=== PATIENT | female | born 1950 | race Caucasian/White ===

== ENCOUNTER 2017-01-20 18:55 | Emergency (ER) | payer MEDICARE ==
[~2017-01-20] VITALS: Ht 149.9 cm; Wt 90.0 kg
[~2017-01-20 18:55] MED LIST: ATOR40TA16 PO; HYDR-3533 PO; LISI-586 PO; OMEP20TA PO; POTA-243 PO; ZOFR4TAB PO; walker with seat
[2017-01-20 18:58] VITALS: BP 135/63; PULSE 85; RESP 17; TEMP 99.1; O2SAT 97
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
--- NOTE | 2017-01-20 22:35 | RADRPT ---
EXAM DATE/TIME: 01/20/2017 22:03 [facility] COMPARISON: SHOULDER RIGHT LTD (2VWS), July 04, 2015, 14:56. INDICATIONS : Pain from previous fracture one year ago. MEDICAL HISTORY : Prior fracture. SURGICAL HISTORY : None. ENCOUNTER: Initial ACUITY: >1 year PAIN SCORE: 5/10 LOCATION: Right shoulder. FINDINGS: There is an essentially healed surgical neck fracture of the right humerus. Mild medial displacement and lateral angulation deformity. No subluxation. There is moderate osteoarthritis of the glenohumera l joint. CONCLUSION: Surgical neck fracture has healed. Mild deformity as above. There is moderate osteoarthritis of the g lenohumeral joint. I don't see an acute fracture. Eric Tapia MD on January 20, 2017 at 22:32 Board Certified Radiologist. This report was verified electronically.
--- NOTE | 2017-01-20 22:37 | RADRPT ---
EXAM DATE/TIME: 01/20/2017 22:09 [facility] COMPARISON: No previous studies available for comparison. INDICATIONS : Pain from falling on tile. MEDICAL HISTORY : None. SURGICAL HISTORY : None. ENCOUNTER: Initial ACUITY: 3 weeks PAIN SCORE: 5/10 LOCATION: Right anterior knee. FINDINGS: No fracture or subluxation seen in the right knee. No perceptible joint effusion. Very severe tricompartment osteoarthritis noted. CONCLUSION: Intact right knee. Severe osteoarthritis. Eric Tapia MD on January 20, 2017 at 22:35 Board Certified Radiologist. This report was verified electronically.
[2017-02-06] MEDS ORDERED: FLUO40CA PO (15:02)
[2017-02-07] MEDS ORDERED: FLUO40CA PO (13:43)
[2017-02-09] MEDS ORDERED: ATOR40TA16 PO (14:22)
== END 2017-01-20 23:19 | disposition home or self-care (01) ==
LOC: NEPD 18:55
DX: S43.401A Unspecified sprain of right shoulder joint, initial encounter (principal); S83.91XA Sprain of unspecified site of right knee, initial encounter; W19.XXXA Unspecified fall, initial encounter; I10 Essential (primary) hypertension; E11.9 Type 2 diabetes mellitus without complications; E78.00 Pure hypercholesterolemia, unspecified; F41.9 Anxiety disorder, unspecified
CPT/HCPCS: 73030; 73564; 99284